=== PATIENT | male | born 1955 | race Caucasian/White ===

== ENCOUNTER → 2016-11-24 | Outpatient (CLI) | payer OTHER ==
[~2016-11-24] MED LIST: AMITRIPTYLINE H50 MG PO; ELIQUIS 5 MG TAB5 MG PO; MEGACE 400400 MG/10 PO; ONE DAILY MULT1 EAC1 PO; PROTONIX 40 MG40 M1 PO; ZANTAC300 MG PO
== END ==
LOC: HEART 5 14:31
DX: J44.9 Chronic obstructive pulmonary disease, unspecified (principal); R06.02 Shortness of breath; F17.210 Nicotine dependence, cigarettes, uncomplicated; R94.2 Abnormal results of pulmonary function studies
CPT/HCPCS: 94060; 94729

== ENCOUNTER 2016-12-03 10:53 | Emergency (ER) | payer OTHER ==
[2016-12-03 12:08] LABS: HEMOGLOBIN 13.8 gm/dl (14.0-17.5); RED BLOOD COUNT 4.37 M/UL (4.20-5.50); WHITE BLOOD COUNT 11.6 K/UL (4.5-11.0)
[2017-03-28] MEDS ORDERED: AMITRIPTYLINE H50 MG PO (23:22)
[2017-03-28] MEDS ORDERED: ELIQUIS 5 MG TAB5 MG PO (23:23)
[2017-03-28] MEDS ORDERED: ZANTAC300 MG PO (23:24)
[2017-03-28] MEDS ORDERED: PROTONIX 40 MG40 M1 PO (23:24)
[2017-04-01] MEDS ORDERED: ONE DAILY MULT1 EAC1 PO (14:27)
[2017-04-01] MEDS ORDERED: MEGACE 400400 MG/10 PO (14:27)
== END 2016-12-03 15:30 | disposition home or self-care (01) ==
LOC: ER1 10:53 → ZEROF 14:40 → ER1 15:30
PROVIDERS: Physician Assistant
DX: I82.4Z2 Acute embolism and thrombosis of unspecified deep veins of left distal lower extremity (principal); I26.99 Other pulmonary embolism without acute cor pulmonale; C34.90 Malignant neoplasm of unspecified part of unspecified bronchus or lung; F17.210 Nicotine dependence, cigarettes, uncomplicated; Z79.899 Other long term (current) drug therapy
CPT/HCPCS: 36415; 80053; 82550; 82553; 83874; 84484; 85025; 93005; 93971; 96372; 99284; J1650; J7050; Q9963